=== PATIENT | male | born 1940 | race Caucasian/White ===

== ENCOUNTER → 2016-08-28 | Day surgery (SDC) | payer MEDICARE ==
--- NOTE | 2016-08-27 07:51 | SC.ANESEVA ---
Anesthesia Eval & Plan ([facility]) - Medications/Allergies Allergies: Allergies hydrocodone Allergy (Verified 12/11/14 18:40) Nausea/Vomiting Current Medication List: Reviewed - Focused Physical Exam NPO since: Since after Midnight Mallampati: Class II Thyromental Distance: Greater than 3 Neck: Limited Range of Motion Dental: Normal - no significant findings Cardiovascular/Chest: Normal (RRR no mumurs or rubs.) Respiratory: Lungs clear. negative: Wheezing Any problems with anesthesia, including nausea and vomiting?: No Any relatives with a history of Malignant Hyperthermia?: No Other: Diagnoses TRIGGER FINGER, RIGHT LITTLE FINGER (08/28/16) Problem List Problem Status Onset Adverse reaction to antibiotic Acute Generalized weakness Acute Hyponatremia Acute Renal insufficiency Acute UTI (urinary tract infection) Acute Gastroesophageal reflux disease Chronic Hypercholesteremia Chronic Hypertension Chronic Allergies Allergy/AdvReac Type Severity Reaction Status Date / Time hydrocodone Allergy Nausea/Vomi Verified 12/11/14 18:40 ting Home Medications Medication Instructions Recorded Last Taken Type Aspirin 325 mg PO DAILY 12/11/14 12/13/14 08:52 History Atorvastatin Calcium [Lipitor] 80 mg PO HS 12/11/14 12/12/14 20:55 History Fish Oil/Dha/Epa [Fish Oil 1,200 1 each PO BID 12/11/14 12/13/14 08:51 History mg Fish Oil] Lisinopril [Prinivil] 5 mg PO DAILY 12/11/14 12/13/14 08:51 History Metoprolol Tartrate [Lopressor] 12.5 mg PO BID 12/11/14 12/13/14 08:51 History Omeprazole [Prilosec] 20 mg PO DAILY 12/11/14 12/13/14 05:09 History Cefuroxime Axetil [Ceftin] 500 mg PO BID #14 tablet 12/13/14 Unknown Rx Height and Weight Patient's weight 85.956 kg BMI 28.8 - Anesthetic Plan Anesthesia Type: IV Regional (Abhinav), MAC ASA Class: 3 - Focused Review of Systems Cardiac History: Yes: Hx Hypertension, Hx Coronary Stent, Hx Cardiac Disorders HEENT: Yes: Hx Vision Problem (GLASSES) Respiratory: Yes: Hx Snoring Gastrointestinal: Yes: Hx Colitis, Hx Colonoscopy Blood/Autoimmune: No: Hx AIDS, Hx Hepatitis (type) Smoking Status: Never smoker Past Social History: Denies: Substance Use Disorder Surgical History: Yes: Back (LUMBAR DISK)
[2016-08-27 14:52] VITALS: BMI 28.5
[~2016-08-28] MED LIST: DEXAMETHASONE 4 MG/ML VIAL IV PRN; DIAZEPAM 5 MG TAB PO PRN; FENTANYL 100 MCG/2 ML VIAL IV PRN; FENTANYL 100 MCG/2 ML VIAL ONE; HYDROCODONE 5 MG/ACETAMIN 325 MG TAB PO PRN; KETOROLAC TROMETH 30 MG/ML VIAL IV PRN; KETOROLAC TROMETH 30 MG/ML VIAL ONE; LABETALOL 20 MG/4 ML SYRINGE IV PRN; LR 1,000 ML IV ONE; LR 1,000 ML IV SCH; MIDAZOLAM 2 MG/2 ML VIAL ONE; NS 1,000 ML IV SCH; NS 250 ML IV SCH; ONDANSETRON HCL 4 MG/2 ML VIAL IV PRN; PROPOFOL 200 MG/20 ML VIAL IV ONE; SCOPOLAMINE TRANSDERMAL PATCH TOP PRN; hydrALAZINE 20 MG/ML VIAL IV PRN
--- NOTE | 2016-08-28 08:25 | PCM.DCS92 ---
Discharge Outpatient Note Additional Instructions: Instructions given: 08/28/16 Prescriptions (given at the office) Diet as tolerated Discharge Instructions: Hand Surgery * Apply ice to the surgical site for 15-20 minutes out of each hour while awake for the first 2 days post-op, then apply as often as needed to control swelling and pain. * Keep Bandage clean and dry until after Physical Therapy appointment. * DO NOT lift more than 1-2 lbs with operative hand * Follow up in office as scheduled * Take stool softener while taking pain medication Follow up in office as scheduled - Call office for any additional concerns. ([phone]) Follow up with Physical therapy as scheduled
--- NOTE | 2016-08-28 08:53 | HIMOPRPT ---
DATE OF PROCEDURE: 08/28/16 PREOPERATIVE DIAGNOSIS: right small trigger finger. POSTOPERATIVE DIAGNOSIS: right small trigger finger. OPERATION: right small trigger finger release and flexor tenolysis. SURGEON: Bruce Dean MD. CARGO INSPECTOR: Yary Paul PA-C. ANESTHESIA: Millard block. DRAINS: None. COMPLICATIONS: None. BLOOD LOSS: None. DISPOSITION: Stable to recovery. PROCEDURE IN DETAIL: The patient was taken back to the surgical suite where a Abhinav block was placed on the right forearm. The right hand and forearm was then prepped and draped in the standard sterile fashion. The hand was secured with a lead hand silva. A 1.5-cm transverse incision was made in the distal palmar flexion crease directly over the flexor tendons to the small finger. The incision was carried down sharply through the skin and subcutaneous tissues. The palmar fascia was released, exposing the flexor tendon and the A1 marly. The neurovascular bundles on either side of it were protected. Under direct visualization, the A1 marly was released with the tenotomy scissors. A complete release was confirmed. There was no gross pathology noted. However there was some mild proximal fibrosis in the tendons and a flexor tenolysis was performed in this area. The wound was then irrigated with sterile saline solution and the skin was closed with simple interrupted 4-0 Ethilon sutures. Sterile bulky hand dressing was applied. The tourniquet was then deflated, and the patient was taken to the recovery room in stable condition. JOSHUA RONQUILLO tolerated the procedure well without immediate complications.
[2016-08-28 09:35] VITALS: TEMP 97.8
[2016-08-28 09:40] VITALS: BP 130/70; PULSE 58
--- NOTE | 2016-08-28 12:11 | SC.ANESPOS ---
Post-Anesthesia Note LOC: Fully Awake Post-Anesthesia Assessment: Awake, Returned to Baseline, Hemodynamically Stable , Pain Control Adequate Phase I & II Recovery Complete: Yes Apparent Anesthesia Complication: No : N - Vital Signs Blood Pressure: 130/70 Pulse: 58 Resp Rate: 18 O2 Sat: 98 Temp: 97.8 F
== END ==
LOC: CPSC 07:23
PROVIDERS: ATTEND Orthopaedic Surgery
PROC: 0LN70ZZ Release Right Hand Tendon, Open Approach (ICD-10-PCS; principal; 2016-08-28 08:15)
DX: M65.351 Trigger finger, right little finger (principal); I10 Essential (primary) hypertension; I25.10 Atherosclerotic heart disease of native coronary artery without angina pectoris; K21.9 Gastro-esophageal reflux disease without esophagitis; F41.9 Anxiety disorder, unspecified; F32.9 Major depressive disorder, single episode, unspecified; E78.00 Pure hypercholesterolemia, unspecified; M10.9 Gout, unspecified; M19.90 Unspecified osteoarthritis, unspecified site; Z95.5 Presence of coronary angioplasty implant and graft; Z79.899 Other long term (current) drug therapy; Z85.828 Personal history of other malignant neoplasm of skin
CPT/HCPCS: 26055; 82962; J1885; J2250; J2704; J3010